=== PATIENT | male | born 1995 | race Two or more races ===

== ENCOUNTER 2017-11-05 13:58 | Day surgery (SDC) | payer OTHER ==
[~2017-11-05 13:58] MED LIST: EPHEDrine SULFATE 50 MG/5 ML SYG; ROCURONIUM 50 MG INJ
[2017-11-05] MEDS ORDERED: MIDAZOLAM 1 MG/ML 2 ML INJ (15:05)
[2017-11-05] MEDS ORDERED: CEFAZOLIN 1 GM INJ (15:05)
[2017-11-05] MEDS ORDERED: PROPOFOL 20 ML (15:05)
[2017-11-05] MEDS ORDERED: FENTAnyl 50 MCG/ML VIAL ×2 (15:05→15:31)
[2017-11-05] MEDS ORDERED: BUPIVACAINE 0.5% (SDV) 30 ML INJ (15:21)
[2017-11-05] MEDS ORDERED: LIDOCAINE 1% (MPF) 30 ML INJ (15:21)
[2017-11-05] MEDS ORDERED: POLYMYXIN/BACITRACIN 1L IRRIG (15:21)
[2017-11-05] MEDS ORDERED: ROPIVACAINE 0.5 % 30 ML VIAL (15:22)
[2017-11-05] MEDS ORDERED: ONDANSETRON 4 MG INJ (16:15)
[2017-11-05] MEDS ORDERED: KETOROLAC 30 MG INJ (16:15)
[2017-11-05] MEDS ORDERED: METOCLOPRAMIDE 10 MG INJ (16:15)
[2017-11-05] MEDS ORDERED: DEXAMETHASONE 4 MG/ML 1 ML INJ (16:15)
[2017-11-05] MEDS ORDERED: ACETAMINOPHEN 1000MG/100ML IV 100 ML (16:16)
[2017-11-05] MEDS ORDERED: GELATIN SIZE 100 SPONGE (16:39)
[2017-11-05] MEDS ORDERED: OXYCODONE/ACETAMINOPHEN (5/325) TAB PO ×2 (17:00)
[2017-11-05] MEDS ORDERED: FENTAnyl 50 MCG/ML VIAL IV ×3 (17:00)
[2017-11-05] MEDS ORDERED: hydrALAzine 20 MG INJ IV (17:00)
[2017-11-05] MEDS ORDERED: LABETALOL HCL 20MG INJ IV (17:00)
[2017-11-05] MEDS ORDERED: METOCLOPRAMIDE 10 MG INJ IV (17:00)
[2017-11-05] MEDS ORDERED: ONDANSETRON 4 MG INJ IV (17:00)
[2017-11-05] MEDS ORDERED: HYDROmorphONE (0.2 MG/ML) 10ML SYG IV ×3 (17:00)
[2017-11-05] MEDS ORDERED: MEPERIDINE 25 MG INJ IV (17:00)
[2017-11-05] MEDS ORDERED: DIPHENHYDRAMINE 50 MG INJ IV (17:00)
[2017-11-05] MEDS ORDERED: EPHEDrine SULFATE 50 MG/5 ML SYG IV (17:00)
== END 2017-11-05 18:16 | disposition home or self-care (01) ==
LOC: SDS 13:58
DX: S62.326A Displaced fracture of shaft of fifth metacarpal bone, right hand, initial encounter for closed fracture (principal); X58.XXXA Exposure to other specified factors, initial encounter; Y93.9 Activity, unspecified; Y99.9 Unspecified external cause status; Y92.9 Unspecified place or not applicable
CPT/HCPCS: 26615; 73130-RT